=== PATIENT | male | born 1975 | race African-American/Black ===

== ENCOUNTER 2018-08-28 10:17 | Inpatient (IN) | payer OTHER ==
[2018-08-28 13:31] VITALS: BMI 20.6
--- NOTE | 2018-08-28 16:27 | HP ---
CIWA Score Nausea/Vomitin Muscle Tremors: 4-Moderate,w/Arms Extend Anxiety: 2 Agitation: 0-Normal Activity Paroxysmal Sweats: 2 Orientation: 2-Disoriented Date<2 days Tacttile Disturbances: 2-Mild Itch/Numbness/Burn Auditory Disturbances: 0-None Visual Disturbances: 1-Very Mild Sensitivity Headache: 0-None Present CIWA-Ar Total Score: 16 - Admission Criteria OASAS Guidelines: Admission for Medically Managed Detox: Requires at least one of the followin. CIWA greater than 12 2. Seizures within the past 24 hours 3. Delirium tremens within the past 24 hours 4. Hallucinations within the past 24 hours 5. Acute intervention needed for co occurring medical disorder 6. Acute intervention needed for co occurring psychiatric disorder 7. Severe withdrawal that cannot be handled at a lower level of care (continued vomiting, continued diarrhea, abnormal vital signs) requiring intravenous medication and/or fluids 8. Patient presents the following: CIWA greater than 12 Admission Criteria Met: Admission criteria met Admission ROS S - [facility] Chief Complaint: alcohol withdrawal symptoms Allergies/Adverse Reactions: Allergies Allergy/AdvReac Type Severity Reaction Status Date / Time No Known Allergies Allergy Verified 08/28/18 13:19 History of Present Illness: Patient is a 43 yo male with hx of alcohol dependence is here seeking inpatient detox d/t [facility]. Reports frequent ETOH blackouts with last episode last night longest period of sobriety two years, last detox [facility] 2012 Denies hx of seizures Psych: depression, bipolar PMHX: denies Denies SI/HI Exam Limitations: No Limitations - Ebola screening Have you traveled outside of the country in the last 21 days: No Have you had contact with anyone from an Ebola affected area: No - Review of Systems Constitutional: Chills, Diaphoresis, Loss of Appetite, Changes in sleep, Weakness, Unintentional Wgt. Loss (50 lbs) EENT: reports: No Symptoms Reported Respiratory: reports: Cough Cardiac: reports: Palpitations GI: reports: Diarrhea, Nausea, Poor Appetite, Poor Fluid Intake, Vomiting, Abdominal cramping : reports: No Symptoms Reported Musculoskeletal: reports: Back Pain, Joint Pain Integumentary: reports: Dryness, Lesions (both hands, frequent nail bitting) Neuro: reports: Tremors, Weakness Endocrine: reports: Change in Weight Hematology: reports: No Symptoms Reported Psychiatric: reports: Orientated x3, Anxious Patient History - Patient Medical History Hx Anemia: No Hx Asthma: No Hx Chronic Obstructive Pulmonary Disease (COPD): No Hx Cancer: No Hx Cardiac Disorders: No Hx Congestive Heart Failure: No Hx Hypertension: No Hx Hypercholesterolemia: No Hx Pacemaker: No HX Cerebrovascular Accident: No Hx Seizures: No Hx Dementia: No Hx Diabetes: No Hx Gastrointestinal Disorders: Yes (GERD ) Hx Liver Disease: No Hx Genitourinary Disorders: No Hx Sexually Transmitted Disorders: No Hx Renal Disease (ESRD): No Hx Thyroid Disease: No Hx Human Immunodeficiency Virus (HIV): No Hx Hepatitis C: No Hx Depression: Yes Hx Suicide Attempt: Yes Hx Bipolar Disorder: No Hx Schizophrenia: Yes - Patient Surgical History Past Surgical History: Yes Hx Neurologic Surgery: No Hx Cataract Extraction: No Hx Cardiac Surgery: No Hx Lung Surgery: No Hx Breast Surgery: No Hx Breast Biopsy: No Hx Abdominal Surgery: Yes Hx Appendectomy: No Hx Cholecystectomy: No Hx Genitourinary Surgery: No Hx Section: No Hx Orthopedic Surgery: No Other Surgical History: HERNIA REPAIR, 2007, 1985 Anesthesia Reaction: No - PPD History Previous Implant?: No Documented Results: Negative w/o proof PPD to be Administered?: Yes - Smoking Cessation Smoking history: Current every day smoker Have you smoked in the past 12 months: Yes Aproximately how many cigarettes per day: 10 Hx Chewing Tobacco Use: No Initiated information on smoking cessation: Yes 'Breaking Loose' booklet given: 08/28/18 - Substance & Tx. History Hx Alcohol Use: Yes Hx Substance Use: Yes Substance Use Type: Alcohol Hx Substance Use Treatment: Yes ([facility] 2013 detox ) - Substances abused Alcohol Substance route: Oral Frequency: Daily Amount used: 12 x 24 oz cans of beer + 8oz x 5 liquor Age of first use: 13 Date of last use: 08/28/18 Family Disease History - Family Disease History Family History: Denies Admission Physical Exam BHS - Vital Signs Vital Signs: Vital Signs - 24 hr 08/28/18 13:21 Temperature 98.8 F Pulse Rate 97 H Respiratory 17 Rate Blood Pressure 111/72 - Physical General Appearance: Yes: Moderate Distress, Thin, Tremorous, Sweating, Anxious HEENTM: Yes: EOMI, Hearing grossly Normal, Normal ENT Inspection, Normocephalic , Normal Voice, [place], Pharynx Normal, Tm's normal, Other (cheilitis) Respiratory: Yes: Chest Non-Tender, Lungs Clear, Normal Breath Sounds, No Respiratory Distress, No Accessory Muscle Use Neck: Yes: Within Normal Limits Breast: Yes: Breast Exam Deferred Cardiology: Yes: Regular Rhythm, Regular Rate Abdominal: Yes: Normal Bowel Sounds, Non Tender, Flat, Soft Genitourinary: Yes: Within Normal Limits Back: Yes: Normal Inspection Musculoskeletal: Yes: full range of Motion, Gait Steady, Pelvis Stable Extremities: Yes: Normal Capillary Refill, Normal Inspection, Normal Range of Motion, Non-Tender Neurological: Yes: coagulator II-XII NML intact, Fully Oriented, Alert, Motor Strength 5/5, Depressed Affect Integumentary: Yes: Normal Color, Warm, Diaphoresis, Other (+ lesionon both hands no infection present) Lymphatic: Yes: Within Normal Limits - Diagnostic (1) Alcohol dependence with uncomplicated withdrawal Current Visit: Yes Status: Acute (2) Psychiatric disorder Current Visit: Yes Status: Suspected (3) Sciatica Current Visit: Yes Status: Chronic Qualifiers: Laterality: unspecified laterality Qualified Code(s): M54.30 - Sciatica, unspecified side (4) Nicotine dependence Current Visit: Yes Status: Acute Qualifiers: Nicotine product type: cigarettes Cleared for Admission S - Detox or Rehab [facility] Level of Care: Medically Managed Detox Regimen/Protocol: Librium Breathalyzer - Breathalyzer Breathalyzer: 0.213 Urine Drug Screen - Test Device Lot number: [id number] Expiration date: 05/01/20 - Control Is test valid?: Yes - Results Drug screen NEGATIVE: Yes Inpatient Rehab Admission - Rehab Decision to Admit Inpatient rehab admission?: No
[2018-08-28] MEDS ORDERED: MAGNESIUM HYDROX 2400MG/30ML ORAL SUSPENSION 30 ML CUP PO PRN (16:31)
[2018-08-28] MEDS ORDERED: IBUPROFEN 400 MG TABLET (FP) PO PRN (16:31)
[2018-08-28] MEDS ORDERED: ACETAMINOPHEN 325 MG TABLET (FP) PO PRN ×2 (16:31)
[2018-08-28] MEDS ORDERED: MENTHOL/PHENOL 1 EACH UD MM PRN (16:31)
[2018-08-28] MEDS ORDERED: MAG HYDROX/AL HYDROX/SIMETH 30 ML UNIT-DOSE CUP PO PRN (16:31)
[2018-08-28] MEDS ORDERED: BISMUTH SUBSALICYLATE 524 MG/30 ML UD PO PRN (16:31)
[2018-08-28] MEDS ORDERED: chlordiazePOXIDE HCL 25 MG CAPSULE PO PRN (16:31)
[2018-08-28] MEDS ORDERED: MELATONIN 5 MG TABLETS PO PRN (16:31)
[2018-08-28] MEDS ORDERED: MAGNESIUM CITRATE 300 ML BOTTLE PO PRN (16:31)
[2018-08-28] MEDS ORDERED: NICOTINE POLACRILEX 2 MG GUM BUC PRN (16:31)
[2018-08-28] MEDS: chlordiazePOXIDE HCL 25 MG CAPSULE PO SCH (22:14)
[2018-08-28] MEDS: THIAMINE HCL 100 MG TABLET (FP) PO SCH (22:14)
[2018-08-29] MEDS: chlordiazePOXIDE HCL 25 MG CAPSULE PO SCH ×4 (05:16→22:16)
[2018-08-29 09:30] LABS: EPI CELLS 2.2 /HPF (0-5/HPF); HYALINE CASTS 19 /lpf (0-8); URINE APPEARANCE CLOUDY; URINE BACTERIA 7.8 /hpf (NEGATIVE); URINE BILIRUBIN 1+ (NEGATIVE); URINE COLOR DK YELLOW; URINE GLUCOSE (UA) NEGATIVE (NEGATIVE); URINE KETONE TRACE (NEGATIVE); URINE LEUK ESTERASE 1+ (NEGATIVE); URINE NITRITE NEGATIVE (NEGATIVE); URINE PROTEIN TRACE (NEGATIVE); URINE RBC 3 /hpf (0-4); URINE WBC 12 /hpf (0-5)
[2018-08-29] MEDS: NICOTINE 14 MG/24 HOURS TOPICAL PATCH TD SCH (10:22)
[2018-08-29] MEDS: PRENATAL VITAMINS W/ FOLIC ACID TABLET (FP) PO SCH (10:22)
[2018-08-29] MEDS: METHOCARBAMOL 500 MG TABLET PO PRN (10:45)
--- NOTE | 2018-08-29 11:28 | EKG ---
Test Reason : Blood Pressure : / mmHG Vent. Rate : 079 BPM Atrial Rate : 079 BPM P-R Int : 160 ms QRS Dur : 074 ms QT Int : 414 ms P-R-T Axes : 070 -02 032 degrees QTc Int : 474 ms NORMAL SINUS RHYTHM NO PREVIOUS ECGS AVAILABLE Confirmed by DAVIDE CHAVARRIA MD ([id number]) on 08/29/2018 11:27:40 AM Referred By: Confirmed By:DAVIDE CHAVARRIA MD
[2018-08-29 11:45] LABS: HEMATOCRIT 37.7 % (35.4-49); HEMOGLOBIN 12.7 GM/dL (11.7-16.9); MCH 31.4 pg (25.7-33.7); MCHC 33.8 g/dl (32.0-35.9); MEAN CELL VOLUME 92.8 fl (80-96); MEAN PLT VOLUME 8.3 fl (7.5-11.1); PLATELET COUNT 156 K/MM3 (134-434); RBC 4.06 M/mm3 (4.00-5.60); WHITE BLOOD COUNT 2.1 K/mm3 (4.0-10.0)
[2018-08-29 11:58] LABS: ALBUMIN 2.7 g/dl (3.4-5.0); BILIRUBIN,TOTAL 1.2 mg/dL (0.2-1); BLOOD UREA NITROGEN 6.6 mg/dL (7-18); CALCIUM 8.6 mg/dL (8.5-10.1); CREATININE 0.8 mg/dL (0.55-1.3)
--- NOTE | 2018-08-29 14:07 | PN ---
S CIWA - CIWA Score Nausea/Vomitin Muscle Tremors: 2 Anxiety: 2 Agitation: 2 Paroxysmal Sweats: 1-Minimal Palms Moist Orientation: 0-Oriented Tacttile Disturbances: 1-Very Mild Itch/Numbness Auditory Disturbances: 1-Very Mild Visual Disturbances: 0-None Headache: 2-Mild CIWA-Ar Total Score: 13 BHS Progress Note (SOAP) Subjective: alert,irritable,anxious,interrupted sleep,tremor pain in the body and back Objective: 08/29/18 14:05 Vital Signs Temperature 98.9 F 08/29/18 09:14 Pulse Rate 92 H 08/29/18 11:30 Respiratory Rate 18 08/29/18 11:30 Blood Pressure 132/85 08/29/18 09:14 O2 Sat by Pulse Oximetry (%) 08/29/18 14:06 Laboratory Last Values WBC 2.1 K/mm3 (4.0-10.0) L 08/29/18 07:00 RBC 4.06 M/mm3 (4.00-5.60) 08/29/18 07:00 Hgb 12.7 GM/dL (11.7-16.9) 08/29/18 07:00 Hct 37.7 % (35.4-49) D 08/29/18 07:00 MCV 92.8 fl (80-96) 08/29/18 07:00 MCH 31.4 pg (25.7-33.7) 08/29/18 07:00 MCHC 33.8 g/dl (32.0-35.9) 08/29/18 07:00 RDW 15.0 % (11.9-15.9) 08/29/18 07:00 Plt Count 156 K/MM3 (134-434) D 08/29/18 07:00 MPV 8.3 fl (7.5-11.1) D 08/29/18 07:00 Sodium 137 mmol/L (136-145) 08/29/18 07:00 Potassium 4.0 mmol/L (3.5-5.1) 08/29/18 07:00 Chloride 102 mmol/L (98-107) 08/29/18 07:00 Carbon Dioxide 29 mmol/L (21-32) 08/29/18 07:00 Anion Gap 7 MMOL/L (8-16) L 08/29/18 07:00 BUN 6.6 mg/dL (7-18) L 08/29/18 07:00 Creatinine 0.8 mg/dL (0.55-1.3) 08/29/18 07:00 Est GFR (CKD-EPI)AfAm 126.81 08/29/18 07:00 Est GFR (CKD-EPI)NonAf 109.41 08/29/18 07:00 Random Glucose 76 mg/dL (74-106) 08/29/18 07:00 Calcium 8.6 mg/dL (8.5-10.1) 08/29/18 07:00 Total Bilirubin 1.2 mg/dL (0.2-1) H 08/29/18 07:00 AST 241 U/L (15-37) H 08/29/18 07:00 ALT 90 U/L (13-61) H 08/29/18 07:00 Alkaline Phosphatase 144 U/L (45-117) H 08/29/18 07:00 Total Protein 6.0 g/dl (6.4-8.2) L 08/29/18 07:00 Albumin 2.7 g/dl (3.4-5.0) L 08/29/18 07:00 Urine Color Dk yellow 08/28/18 09:13 Urine Appearance Cloudy 08/28/18 09:13 Urine pH 5.0 (5.0-8.0) 08/28/18 09:13 Ur Specific [place] 1.022 (1.010-1.035) 08/28/18 09:13 Urine Protein Trace (NEGATIVE) 08/28/18 09:13 Urine Glucose (UA) Negative (NEGATIVE) 08/28/18 09:13 Urine Ketones Trace (NEGATIVE) H 08/28/18 09:13 Urine Blood Negative (NEGATIVE) 08/28/18 09:13 Urine Nitrite Negative (NEGATIVE) 08/28/18 09:13 Urine Bilirubin 1+ (NEGATIVE) H 08/28/18 09:13 Urine Urobilinogen 1.0 mg/dL (0.2-1.0) 08/28/18 09:13 Ur Leukocyte Esterase 1+ (NEGATIVE) H 08/28/18 09:13 Urine WBC (Auto) 12 /hpf (0-5) 08/28/18 09:13 Urine RBC (Auto) 3 /hpf (0-4) 08/28/18 09:13 Urine Casts (Auto) 19 /lpf (0-8) 08/28/18 09:13 U Epithel Cells (Auto) 2.2 /HPF (0-5/HPF) 08/28/18 09:13 Urine Bacteria (Auto) 7.8 /hpf (NEGATIVE) 08/28/18 09:13 rpr ,hiv pending Assessment: 08/29/18 14:06 withdrawal symptom Plan: continue detox,initial wbc is 2.1,elevation of alt,ast,repeat cbc,cmp,inr in am
--- NOTE | 2018-08-29 15:26 | CONSULT ---
[facility] Psychiatric Consult - Data Date of interview: 08/29/18 Admission source: [facility] Identifying data: Readmission to [facility] for this 43 y/o AA male self- referred for detoxification (alcohol). Examined at [facility]. Patient is single, no children, domiciled, unemployed and supported on [facility] benefits. Substance Abuse History: Discussed with patient. Mr Hernandez admits to a long standing history of alcohol use disorder. Details in current [facility] report as follows : Smoking history: Current every day smoker. Have you smoked in the past 12 months: Yes. Aproximately how many cigarettes per day: 10. Hx Chewing Tobacco Use: No. Initiated information on smoking cessation: Yes. 'Breaking Loose' booklet given: 08/28/18. - Substance & Tx. History. Hx Alcohol Use: Yes. Hx Substance Use: Yes. Substance Use Type: Alcohol. Hx Substance Use Treatment: Yes ([facility] 2013 detox ). - Substances abused. Alcohol. Substance route: Oral. Frequency: Daily. Amount used: 12 x 24 oz cans of beer + 8oz x 5 liquor. Age of first use: 13. Date of last use: 08/28/18 Medical History: Patient endorses good general health. Psychiatric History: History of two psychiatric hospitalizations. Patient endorses the diagnosis of Schizoaffective Disorder (2005) and treatment, in the past, with citalopram + quetiapine. Mr Hernandez indicates that he has dropped out psychiatric OPD care for past five years (no medications). Denies history of suicide attempts. Physical/Sexual Abuse/Trauma History: Patient denies. Additional Comment: Drug screen is negative. Mental Status Exam - Mental Status Exam Alert and Oriented to: Time, Place, Person Cognitive Function: Good Patient Appearance: Well Groomed Mood: Nervous, Withdrawn Affect: Appropriate, Normal Range Patient Behavior: Fatigued, Appropriate, Cooperative Speech Pattern: Clear, Appropriate Voice Loudness: Normal Thought Process: Goal Oriented Thought Disorder: Not Present Hallucinations: Denies Suicidal Ideation: Denies Homicidal Ideation: Denies Insight/Judgement: Poor Sleep: Poorly, Difficulty falling asleep Appetite: Good Muscle strength/Tone: Normal Gait/Station: Normal Psychiatric Findings - Problem List ([place] 1, 2,3) (1) Alcohol dependence with uncomplicated withdrawal Current Visit: Yes Status: Acute (2) Nicotine dependence Current Visit: Yes Status: Chronic Qualifiers: Nicotine product type: cigarettes (3) History of schizoaffective disorder Current Visit: Yes Status: Chronic (4) Insomnia Current Visit: Yes Status: Chronic (5) Non-compliance Current Visit: Yes Status: Chronic - Initial Treatment Plan Initial Treatment Plan: Interviewed with medical students in attendance ( patient gave verbal permission). Sleep hygiene. Detoxification in progress. Support. Groups. AA meetings. Relapse prevention (MAT) : discussed in this session. Seroquel 100 mg po hs. Ordered at patient's request. Side effects/ benefits discussed. Verbal consent granted to MD. Martini.
[2018-08-29] MEDS: QUEtiapine FUMARATE 100 MG TABLET (FP) PO SCH (22:16)
[2018-08-29] MEDS: THIAMINE HCL 100 MG TABLET (FP) PO SCH (22:16)
[2018-08-30] MEDS: chlordiazePOXIDE HCL 25 MG CAPSULE PO SCH ×3 (05:33→18:00)
[2018-08-30] MEDS: NICOTINE 14 MG/24 HOURS TOPICAL PATCH TD SCH (10:09)
[2018-08-30] MEDS: PRENATAL VITAMINS W/ FOLIC ACID TABLET (FP) PO SCH (10:09)
[2018-08-30 10:20] LABS: ALBUMIN 2.4 g/dl (3.4-5.0); BILIRUBIN,TOTAL 0.9 mg/dL (0.2-1); CALCIUM 8.4 mg/dL (8.5-10.1); CREATININE 0.8 mg/dL (0.55-1.3); POTASSIUM 3.6 mmol/L (3.5-5.1); TOT PROT 5.7 g/dl (6.4-8.2)
[2018-08-30 10:28] LABS: HEMATOCRIT 37.4 % (35.4-49); HEMOGLOBIN 12.4 GM/dL (11.7-16.9); MCHC 33.2 g/dl (32.0-35.9); MEAN CELL VOLUME 93.5 fl (80-96); MEAN PLT VOLUME 8.7 fl (7.5-11.1); WHITE BLOOD COUNT 2.7 K/mm3 (4.0-10.0)
[2018-08-30 10:29] LABS: INR 0.97 (0.83-1.09); PROTHROMBIN TIME (PATIENT) 11.5 SEC (9.7-13.0)
[2018-08-30 11:19] LABS: PLATELET COUNT 150 K/MM3 (134-434)
--- NOTE | 2018-08-30 16:33 | PN ---
BHS Progress Note (SOAP) Subjective: PATIENT REFUSED TO SPEAK WITH SKIN PILER TODAY TO DISCUSS CURRENT WITHDRAWAL / DETOX SYMPTOMS. UNABLE TO COMPELTE C.I.W.A. SCORE. Objective: 08/30/18 16:30 Vital Signs Temperature 99.4 F 08/30/18 13:13 Pulse Rate 98 H 08/30/18 13:13 Respiratory Rate 20 08/30/18 13:13 Blood Pressure 129/80 08/30/18 13:13 O2 Sat by Pulse Oximetry (%) Laboratory Tests 08/28/18 08/29/18 08/29/18 09:13 07:00 07:00 WBC 2.1 L RBC 4.06 Hgb 12.7 Hct 37.7 D MCV 92.8 MCH 31.4 MCHC 33.8 RDW 15.0 Plt Count 156 D MPV 8.3 D PT with INR INR Sodium 137 Potassium 4.0 Chloride 102 Carbon Dioxide 29 Anion Gap 7 L BUN 6.6 L Creatinine 0.8 Est GFR (CKD-EPI)AfAm 126.81 Est GFR (CKD-EPI)NonAf 109.41 Random Glucose 76 Calcium 8.6 Total Bilirubin 1.2 H AST 241 H ALT 90 H Alkaline Phosphatase 144 H Total Protein 6.0 L Albumin 2.7 L Urine Color Dk yellow Urine Appearance Cloudy Urine pH 5.0 Ur Specific [place] 1.022 Urine Protein Trace Urine Glucose (UA) Negative Urine Ketones Trace H Urine Blood Negative Urine Nitrite Negative Urine Bilirubin 1+ H Urine Urobilinogen 1.0 Ur Leukocyte Esterase 1+ H Urine WBC (Auto) 12 Urine RBC (Auto) 3 Urine Casts (Auto) 19 U Epithel Cells (Auto) 2.2 Urine Bacteria (Auto) 7.8 RPR Titer HIV 1&2 Antibody Screen HIV P24 Antigen 08/29/18 08/29/18 08/30/18 07:00 07:00 07:50 WBC 2.7 L RBC 4.00 Hgb 12.4 Hct 37.4 MCV 93.5 MCH 31.0 MCHC 33.2 RDW 15.0 Plt Count 150 MPV 8.7 PT with INR INR Sodium Potassium Chloride Carbon Dioxide Anion Gap BUN Creatinine Est GFR (CKD-EPI)AfAm Est GFR (CKD-EPI)NonAf Random Glucose Calcium Total Bilirubin AST ALT Alkaline Phosphatase Total Protein Albumin Urine Color Urine Appearance Urine pH Ur Specific [place] Urine Protein Urine Glucose (UA) Urine Ketones Urine Blood Urine Nitrite Urine Bilirubin Urine Urobilinogen Ur Leukocyte Esterase Urine WBC (Auto) Urine RBC (Auto) Urine Casts (Auto) U Epithel Cells (Auto) Urine Bacteria (Auto) RPR Titer Nonreactive HIV 1&2 Antibody Screen Negative HIV P24 Antigen Negative 08/30/18 08/30/18 07:50 08:15 WBC RBC Hgb Hct MCV MCH MCHC RDW Plt Count MPV PT with INR 11.50 INR 0.97 Sodium 143 Potassium 3.6 Chloride 110 H Carbon Dioxide 28 Anion Gap 5 L BUN 12.0 Creatinine 0.8 Est GFR (CKD-EPI)AfAm 126.81 Est GFR (CKD-EPI)NonAf 109.41 Random Glucose 92 Calcium 8.4 L Total Bilirubin 0.9 AST 136 H ALT 80 H Alkaline Phosphatase 144 H Total Protein 5.7 L Albumin 2.4 L Urine Color Urine Appearance Urine pH Ur Specific [place] Urine Protein Urine Glucose (UA) Urine Ketones Urine Blood Urine Nitrite Urine Bilirubin Urine Urobilinogen Ur Leukocyte Esterase Urine WBC (Auto) Urine RBC (Auto) Urine Casts (Auto) U Epithel Cells (Auto) Urine Bacteria (Auto) RPR Titer HIV 1&2 Antibody Screen HIV P24 Antigen LABS NOTED. RESULTS OF REPEAT CBC AND OF REPEAT CMP NOTED. SLIGHT INCREASE NOTED IN WBC LEVEL. SIGNIFICANT REDUCTION NOTED IN LIVER ENZYMES LEVELS. PATIENT HAS HAD LOW WBC LEVEL AND ELEVATED LIVER ENZYMES LEVELS ON PREVIOUS ADMISSIONS. 08/30/18 16:31 Assessment: 08/30/18 16:33 WITHDRAWAL SYMPTOMS. LEUKOPENIA ELEVATED LIVER ENZYMES. Plan: CONTINUE DETOX.
[2018-08-30] MEDS: chlordiazePOXIDE HCL 10 MG CAPSULE PO SCH (22:11)
[2018-08-30] MEDS: QUEtiapine FUMARATE 100 MG TABLET (FP) PO SCH (22:11)
[2018-08-30] MEDS: THIAMINE HCL 100 MG TABLET (FP) PO SCH (22:11)
[2018-08-30] MEDS: METHOCARBAMOL 500 MG TABLET PO PRN (22:12)
[2018-08-30] MEDS ORDERED: chlordiazePOXIDE HCL 10 MG CAPSULE PO PRN (23:00)
[2018-08-31] MEDS: chlordiazePOXIDE HCL 10 MG CAPSULE PO SCH ×3 (05:22→18:34)
[2018-08-31] MEDS: NICOTINE 14 MG/24 HOURS TOPICAL PATCH TD SCH (10:07)
[2018-08-31] MEDS: PRENATAL VITAMINS W/ FOLIC ACID TABLET (FP) PO SCH (10:07)
--- NOTE | 2018-08-31 14:19 | PN ---
[facility] CIWA - CIWA Score Nausea/Vomitin-No Nausea/No Vomiting Muscle Tremors: 4-Moderate,w/Arms Extend Anxiety: 4-Mod. Anxious/Guarded Agitation: 4-Moderately Restless Paroxysmal Sweats: 1-Minimal Palms Moist Orientation: 0-Oriented Tacttile Disturbances: 0-None Auditory Disturbances: 0-None Visual Disturbances: 0-None Headache: 0-None Present CIWA-Ar Total Score: 13 BHS Progress Note (SOAP) Subjective: Pt c/o anxiety, diarrhea, irritability. Objective: 08/31/18 14:17 Vital Signs 08/31/18 08/31/18 06:24 09:32 Temperature 97.9 F 97.7 F Pulse Rate 51 L 100 H Respiratory 18 20 Rate Blood Pressure 139/79 113/79 Laboratory Tests 08/28/18 08/29/18 08/29/18 09:13 07:00 07:00 WBC 2.1 L RBC 4.06 Hgb 12.7 Hct 37.7 D MCV 92.8 MCH 31.4 MCHC 33.8 RDW 15.0 Plt Count 156 D MPV 8.3 D PT with INR INR Sodium 137 Potassium 4.0 Chloride 102 Carbon Dioxide 29 Anion Gap 7 L BUN 6.6 L Creatinine 0.8 Est GFR (CKD-EPI)AfAm 126.81 Est GFR (CKD-EPI)NonAf 109.41 Random Glucose 76 Calcium 8.6 Total Bilirubin 1.2 H AST 241 H ALT 90 H Alkaline Phosphatase 144 H Total Protein 6.0 L Albumin 2.7 L Urine Color Dk yellow Urine Appearance Cloudy Urine pH 5.0 Ur Specific [place] 1.022 Urine Protein Trace Urine Glucose (UA) Negative Urine Ketones Trace H Urine Blood Negative Urine Nitrite Negative Urine Bilirubin 1+ H Urine Urobilinogen 1.0 Ur Leukocyte Esterase 1+ H Urine WBC (Auto) 12 Urine RBC (Auto) 3 Urine Casts (Auto) 19 U Epithel Cells (Auto) 2.2 Urine Bacteria (Auto) 7.8 RPR Titer HIV 1&2 Antibody Screen HIV P24 Antigen 08/29/18 08/29/18 08/30/18 07:00 07:00 07:50 WBC 2.7 L RBC 4.00 Hgb 12.4 Hct 37.4 MCV 93.5 MCH 31.0 MCHC 33.2 RDW 15.0 Plt Count 150 MPV 8.7 PT with INR INR Sodium Potassium Chloride Carbon Dioxide Anion Gap BUN Creatinine Est GFR (CKD-EPI)AfAm Est GFR (CKD-EPI)NonAf Random Glucose Calcium Total Bilirubin AST ALT Alkaline Phosphatase Total Protein Albumin Urine Color Urine Appearance Urine pH Ur Specific [place] Urine Protein Urine Glucose (UA) Urine Ketones Urine Blood Urine Nitrite Urine Bilirubin Urine Urobilinogen Ur Leukocyte Esterase Urine WBC (Auto) Urine RBC (Auto) Urine Casts (Auto) U Epithel Cells (Auto) Urine Bacteria (Auto) RPR Titer Nonreactive HIV 1&2 Antibody Screen Negative HIV P24 Antigen Negative 08/30/18 08/30/18 07:50 08:15 WBC RBC Hgb Hct MCV MCH MCHC RDW Plt Count MPV PT with INR 11.50 INR 0.97 Sodium 143 Potassium 3.6 Chloride 110 H Carbon Dioxide 28 Anion Gap 5 L BUN 12.0 Creatinine 0.8 Est GFR (CKD-EPI)AfAm 126.81 Est GFR (CKD-EPI)NonAf 109.41 Random Glucose 92 Calcium 8.4 L Total Bilirubin 0.9 AST 136 H ALT 80 H Alkaline Phosphatase 144 H Total Protein 5.7 L Albumin 2.4 L Urine Color Urine Appearance Urine pH Ur Specific [place] Urine Protein Urine Glucose (UA) Urine Ketones Urine Blood Urine Nitrite Urine Bilirubin Urine Urobilinogen Ur Leukocyte Esterase Urine WBC (Auto) Urine RBC (Auto) Urine Casts (Auto) U Epithel Cells (Auto) Urine Bacteria (Auto) RPR Titer HIV 1&2 Antibody Screen HIV P24 Antigen Assessment: 08/31/18 14:18 withdrawal sx Plan: continue detox pepto bismol prn
[2018-08-31] MEDS: THIAMINE HCL 100 MG TABLET (FP) PO SCH (22:06)
[2018-08-31] MEDS: QUEtiapine FUMARATE 100 MG TABLET (FP) PO SCH (22:06)
[2018-08-31] MEDS: METHOCARBAMOL 500 MG TABLET PO PRN (22:08)
[2018-08-31] MEDS ORDERED: chlordiazePOXIDE HCL 10 MG CAPSULE PO SCH (23:00)
[2018-09-01 06:27] VITALS: BP 114/59; PULSE 62; TEMP 97
[2018-09-01] MEDS: NICOTINE 14 MG/24 HOURS TOPICAL PATCH TD SCH (09:04)
[2018-09-01] MEDS: PRENATAL VITAMINS W/ FOLIC ACID TABLET (FP) PO SCH (09:04)
--- NOTE | 2018-09-01 17:57 | DS ---
[facility] Detox Discharge Summary Admission Date: 08/28/18 Discharge Date: 09/01/18 - History Present History: Alcohol Dependence Additional Comments: PATIENT REFUSED TO SPEAK WITH [employer] PRIOR TO DISCHARGE FROM DETOX UNIT. THUS, PRE- DISCHARGE MEDICAL ASSESSMENT UNABLE TO BE DONE. PER OFFICE NURSE Neyda FELIZ, PATIENT REFUSED AFTER REFERRAL FROM OFFICE NURSE. Pertinent Past History: Depression, Bipolar Disorder, History Of Schizoaffective Disorder, Insomnia, G.E.R.D., History Of Sciatica, Nicotine Dependence, Elevated Liver Enzymes, Hyperbilirubinemia, Leukopenia. - Physical Exam Results Vital Signs: Vital Signs Temperature 97 F L 09/01/18 06:26 Pulse Rate 62 09/01/18 06:26 Respiratory Rate 18 09/01/18 06:30 Blood Pressure 114/59 L 09/01/18 06:26 O2 Sat by Pulse Oximetry (%) Pertinent Admission Physical Exam Findings: WITHDRAWAL SYMPTOMS. Laboratory Tests 08/28/18 08/29/18 08/29/18 09:13 07:00 07:00 WBC 2.1 L RBC 4.06 Hgb 12.7 Hct 37.7 D MCV 92.8 MCH 31.4 MCHC 33.8 RDW 15.0 Plt Count 156 D MPV 8.3 D PT with INR INR Sodium 137 Potassium 4.0 Chloride 102 Carbon Dioxide 29 Anion Gap 7 L BUN 6.6 L Creatinine 0.8 Est GFR (CKD-EPI)AfAm 126.81 Est GFR (CKD-EPI)NonAf 109.41 Random Glucose 76 Calcium 8.6 Total Bilirubin 1.2 H AST 241 H ALT 90 H Alkaline Phosphatase 144 H Total Protein 6.0 L Albumin 2.7 L Urine Color Dk yellow Urine Appearance Cloudy Urine pH 5.0 Ur Specific [place] 1.022 Urine Protein Trace Urine Glucose (UA) Negative Urine Ketones Trace H Urine Blood Negative Urine Nitrite Negative Urine Bilirubin 1+ H Urine Urobilinogen 1.0 Ur Leukocyte Esterase 1+ H Urine WBC (Auto) 12 Urine RBC (Auto) 3 Urine Casts (Auto) 19 U Epithel Cells (Auto) 2.2 Urine Bacteria (Auto) 7.8 RPR Titer HIV 1&2 Antibody Screen HIV P24 Antigen 08/29/18 08/29/18 08/30/18 07:00 07:00 07:50 WBC 2.7 L RBC 4.00 Hgb 12.4 Hct 37.4 MCV 93.5 MCH 31.0 MCHC 33.2 RDW 15.0 Plt Count 150 MPV 8.7 PT with INR INR Sodium Potassium Chloride Carbon Dioxide Anion Gap BUN Creatinine Est GFR (CKD-EPI)AfAm Est GFR (CKD-EPI)NonAf Random Glucose Calcium Total Bilirubin AST ALT Alkaline Phosphatase Total Protein Albumin Urine Color Urine Appearance Urine pH Ur Specific [place] Urine Protein Urine Glucose (UA) Urine Ketones Urine Blood Urine Nitrite Urine Bilirubin Urine Urobilinogen Ur Leukocyte Esterase Urine WBC (Auto) Urine RBC (Auto) Urine Casts (Auto) U Epithel Cells (Auto) Urine Bacteria (Auto) RPR Titer Nonreactive HIV 1&2 Antibody Screen Negative HIV P24 Antigen Negative 08/30/18 08/30/18 07:50 08:15 WBC RBC Hgb Hct MCV MCH MCHC RDW Plt Count MPV PT with INR 11.50 INR 0.97 Sodium 143 Potassium 3.6 Chloride 110 H Carbon Dioxide 28 Anion Gap 5 L BUN 12.0 Creatinine 0.8 Est GFR (CKD-EPI)AfAm 126.81 Est GFR (CKD-EPI)NonAf 109.41 Random Glucose 92 Calcium 8.4 L Total Bilirubin 0.9 AST 136 H ALT 80 H Alkaline Phosphatase 144 H Total Protein 5.7 L Albumin 2.4 L Urine Color Urine Appearance Urine pH Ur Specific [place] Urine Protein Urine Glucose (UA) Urine Ketones Urine Blood Urine Nitrite Urine Bilirubin Urine Urobilinogen Ur Leukocyte Esterase Urine WBC (Auto) Urine RBC (Auto) Urine Casts (Auto) U Epithel Cells (Auto) Urine Bacteria (Auto) RPR Titer HIV 1&2 Antibody Screen HIV P24 Antigen LABS NOTED. - Treatment Hospital Course: Detox Protocol Followed, Detoxed Safely, Responded well, Discharged Condition Good Patient has Accepted a Rehab Referral to: PATIENT DECLINED AFTERCARE REFERRAL. - Medication Discharge Medications: Ambulatory Orders NK [No Known Home Medication] 08/28/18 - Diagnosis (1) Alcohol dependence with uncomplicated withdrawal Status: Acute (2) Elevated liver enzymes Status: Acute (3) Leukopenia Status: Acute Qualifiers: Leukopenia type: unspecified Qualified Code(s): D72.819 - Decreased white blood cell count, unspecified (4) Nicotine dependence Status: Chronic Qualifiers: Nicotine product type: cigarettes Substance use status: uncomplicated Qualified Code(s): F17.210 - Nicotine dependence, cigarettes, uncomplicated (5) Sciatica Status: Chronic Qualifiers: Laterality: unspecified laterality Qualified Code(s): M54.30 - Sciatica, unspecified side (6) Psychiatric disorder Status: Suspected (7) History of schizoaffective disorder Status: Chronic (8) Insomnia Status: Chronic Qualifiers: Insomnia type: unspecified Qualified Code(s): G47.00 - Insomnia, unspecified (9) Non-compliance Status: Chronic - AMA Did Patient Leave Against Medical Advice: No
== END 2018-09-01 08:41 | disposition home or self-care (01) | DRG 897 ==
LOC: YASAS 10:17 → Y3N 16:41
PROVIDERS: ADMIT Surgery; ATTEND Surgery
PROC: HZ2ZZZZ Detoxification Services for Substance Abuse Treatment (ICD-10-PCS; principal; 2018-08-28)
DX: F10.230 Alcohol dependence with withdrawal, uncomplicated (principal); F17.210 Nicotine dependence, cigarettes, uncomplicated; F25.9 Schizoaffective disorder, unspecified; G47.00 Insomnia, unspecified; M54.30 Sciatica, unspecified side; R94.5 Abnormal results of liver function studies; D72.819 Decreased white blood cell count, unspecified; K21.9 Gastro-esophageal reflux disease without esophagitis; Z91.19 Patient's noncompliance with other medical treatment and regimen
CPT/HCPCS: 36415; 80053; 81003; 85027; 85610; 86593; 87389; 93005; 93010